=== PATIENT | female | born 1975 | race Caucasian/White ===

== ENCOUNTER 2023-06-15 06:57 | Observation (INO) | payer OTHER ==
--- NOTE | 2023-06-15 07:49 | ED ---
General Adult HPI - General Chief complaint: Chest Pain Stated complaint: Recheck Time Seen by Provider: 06/15/23 07:17 Source: patient Mode of arrival: ambulatory Limitations: no limitations - History of Present Illness Initial comments: Dictation was produced using Somewhere dictation software. please excuse any grammatical, word or spelling errors. Chief Complaint: 47-year-old female presents emergency Department with left head chest and left arm tightness History of Present Illness: 47-year-old female she presents to the emergency Department with feeling unwell. She states that earlier today she had episode of tightness that started in her left head, left chest and left arm. She refuses to his identified this symptom as pain. States that she has extensive history of sudden within the family. Her mother and sister are from unknown cause suspicious however for sudden cardiac . Sister had an autopsy which did not elucidate why she had . Patient has been seeing ventilator specialist recently. Patient has history of high cholesterol. She states that yesterday she saw a ventilator specialist and some positional maneuvers were performed and since then she's been feeling rather unwell. Patient is a sy mptomatically at the bedside currently. She does report that everyone in her family has . She does have 3 children that are well. Patient has any symptoms at the bedside except for feeling unwell. The ROS documented in this emergency department record has been reviewed and confirmed by me. Those systems with pertinent positive or negative responses have been documented in the HPI. All other systems are other negative and/or noncontributory. - Related Data Home Medications Medication Instructions Recorded Confirmed Cholecalciferol [Vitamin D3 (25 50 mcg PO DAILY 10/22/22 06/15/23 Mcg = 1000 Iu)] Aspirin EC [Ecotrin Low Dose] 81 mg PO DAILY 06/15/23 06/15/23 Pravastatin Sodium [Pravachol] 20 mg PO DAILY 06/15/23 06/15/23 Allergies Allergy/AdvReac Type Severity Reaction Status Date / Time Penicillins Allergy Rash/Hives Verified 06/15/23 10:22 all over body prednisone Allergy Rash/Hives Verified 06/15/23 10:22 all over body Review of Systems ROS Statement: Those systems with pertinent positive or pertinent negative responses have been documented in the HPI. ROS Other: All systems not noted in ROS Statement are negative. Past Medical History Past Medical History: Hyperlipidemia, Skin Disorder Additional Past Medical History / Comment(s): Granuloma annulare History of Any Multi-Drug Resistant Organisms: None Reported Past Surgical History: Hysterectomy Past Psychological History: No Psychological Hx Reported Smoking Status: Never smoker Past Alcohol Use History: Occasional Past Drug Use History: None Reported General Exam - General Exam Comments Initial Comments: PHYSICAL EXAM: General Impression: Alert and oriented x3, not in acute distress HEENT: Normocephalic atraumatic, extra-ocular movements intact, pupils equal and reactive to light bilaterally, mucous membranes moist. Cardiovascular: Heart regular rate and rhythm Chest: Able to complete full sentences, no retractions, no tachypnea Abdomen: abdomen soft, non-tender, non-distended, no organomegaly Musculoskeletal: Pulses present and equal in all extremities, no peripheral edema Motor: no focal deficits noted Neurological: CN II-XII grossly intact, no focal motor or sensory deficits noted Skin: Intact with no visualized rashes Psych: Normal affect and mood Limitations: no limitations Course Vital Signs 06/15/23 07:02 Temperature 98.1 F Pulse Rate 91 Respiratory 18 Rate Blood Pressure 151/93 O2 Sat by Pulse 99 Oximetry EKG Findings - EKG Comments: EKG Findings:: My EKG interpretation: Ventricular rate 85, sinus rhythm,. 141, QRS 86, QTC 400. No AL prolongation, no QTC prolongation, no ST or T-wave changes noted. Overall, this EKG is unremarkable Medical Decision Making - Medical Decision Making Was pt. sent in by a medical professional or institution (, PA, LOCAL SUPERINTENDENT, urgent care, hospital, or fci...) When possible be specific @ -No Did you speak to anyone other than the patient for history (EMS, parent, family, police, friend...)? What history was obtained from this source @ -No Did you review nursing and triage notes (agree or disagree)? Why? @ -I reviewed and agree with nursing and triage notes Were old charts reviewed (outside hosp., previous admission, EMS record, old EKG, old radiological studies, urgent care reports/EKG's, fci records)? Report findings @ -No old charts were reviewed Differential Diagnosis (chest pain, altered mental status, abdominal pain women, abdominal pain men, vaginal bleeding, musculoskeletal, weakness, fever, dyspnea, syncope, headache, dizziness, GI bleed, back pain, seizure, CVA, palpatations, mental health)? @ -Differential Chest Pain: Stable Angina, Unstable Angina, STEMI, NSTEMI Aortic Dissection, Pneumothorax, Musculoskeletal, Esophageal Spasm GERD, Cholecystitis, Pancreatitis, Zoster, this is not meant to be an all-inclusive list. EKG interpreted by me (3pts min.). @ -See above X-rays interpreted by me (1pt min.). @ -Chest x-rays no acute CT interpreted by me (1pt min.). @ -None done U/S interpreted by me (1pt. min.). @ -None done What testing was considered but not performed or refused? (CT, X-rays, U/S, labs)? Why? @ -None What meds were considered but not given or refused? Why? @ -None Did you discuss the management of the patient with other professionals (professionals i.e. , PA, LOCAL SUPERINTENDENT, lab, RT, psych nurse, social services specialist, compactor driver, teacher, transit police officer, case management rn)? Give summary @ -Case discussed with hospitalist for admission Was smoking cessation discussed for >3mins.? @ -No Was critical care preformed (if so, how long)? @ -No Were there social determinants of health that impacted care today? How? (Homelessness, low income, unemployed, alcoholism, drug addiction, transportation, low edu. Level, literacy, decrease access to med. care, long-term, rehab)? @ -No Was there de-escalation of care discussed even if they declined (Discuss DNR or withdrawal of care, Hospice)? DNR status @ -No What co-morbidities impacted this encounter? (DM, HTN, Smoking, COPD, CAD, Cancer, CVA, ARF, Chemo, Hep., AIDS, mental health diagnosis, sleep apnea, morbid obesity)? @ -None Was patient admitted / discharged? Hospital course, mention meds given and route, prescriptions, significant lab abnormalities, going to OR and other pertinent info. @ -47-year-old female presents to the emergency department for atypical chest presentation. She does have extensive history of suspected sudden cardiac . Vital signs stable. EKG is unremarkable. Laboratory evaluation is unremarkable. Patient evaluated at bedside 11:00 AM still mildly symptomatic. She'll be admitted with consultation cardiology. Undiagnosed new problem with uncertain prognosis? @ -No Drug Therapy requiring intensive monitoring for toxicity (Heparin, Nitro, Insulin, Cardizem)? @ -No Were any procedures done? @ -No Diagnosis/symptom? Acute, or Chronic, or Acute on Chronic? Uncomplicated (without systemic symptoms) or Complicated (systemic symptoms)? @ -Chest pain Side effects of treatment? @ -No Exacerbation, Progression, or Severe Exacerbation? @ -No Poses a threat to life or bodily function? How? (Chest pain, [place], [place], pneumonia, PE, COPD, DKA, ARF, appy, cholecystitis, CVA, Diverticulitis, Homicidal, Suicidal, threat to staff... and all critical care pts) @ -yes - Lab Data Result diagrams: 06/15/23 08:38 06/15/23 08:38 Lab Results 06/15/23 06/15/23 06/15/23 Range/Units 08:38 08:38 08:38 WBC 9.2 (3.8-10.6) k/uL RBC 5.06 (3.80-5.40) m/uL Hgb 15.7 (11.4-16.0) gm/dL Hct 46.0 (34.0-46.0) % MCV 90.9 (80.0-100.0) fL MCH 31.1 (25.0-35.0) pg MCHC 34.2 (31.0-37.0) g/dL RDW 12.6 (11.5-15.5) % Plt Count 288 (150-450) k/uL MPV 8.4 Neutrophils % 81 % Lymphocytes % 13 % Monocytes % 4 % Eosinophils % 2 % Basophils % 0 % Neutrophils # 7.4 (1.3-7.7) k/uL Lymphocytes # 1.2 (1.0-4.8) k/uL Monocytes # 0.4 (0-1.0) k/uL Eosinophils # 0.2 (0-0.7) k/uL Basophils # 0.0 (0-0.2) k/uL PT (10.0-12.5) sec INR (<1.2) APTT (22.0-30.0) sec Sodium 139 (137-145) mmol/L Potassium 4.3 (3.5-5.1) mmol/L Chloride 102 (98-107) mmol/L Carbon Dioxide 28 (22-30) mmol/L Anion Gap 9 mmol/L BUN 10 (7-17) mg/dL Creatinine 0.53 (0.52-1.04) mg/dL Est GFR (CKD-EPI)AfAm >90 (>60 ml/min/1.73 sqM) Est GFR (CKD-EPI)NonAf >90 (>60 ml/min/1.73 sqM) Glucose 111 H (74-99) mg/dL Calcium 9.6 (8.4-10.2) mg/dL Magnesium 1.9 (1.6-2.3) mg/dL Total Bilirubin 1.2 (0.2-1.3) mg/dL AST 31 (14-36) U/L ALT 25 (4-34) U/L Alkaline Phosphatase 66 (38-126) U/L Troponin I 0.017 (0.000-0.034) ng/mL Total Protein 7.9 (6.3-8.2) g/dL Albumin 4.7 (3.5-5.0) g/dL Influenza Type A (PCR) (Not Detectd) Influenza Type B (PCR) (Not Detectd) RSV (PCR) (Not Detectd) SARS-CoV-2 (PCR) (Not Detectd) 06/15/23 06/15/23 Range/Units 08:38 09:12 WBC (3.8-10.6) k/uL RBC (3.80-5.40) m/uL Hgb (11.4-16.0) gm/dL Hct (34.0-46.0) % MCV (80.0-100.0) fL MCH (25.0-35.0) pg MCHC (31.0-37.0) g/dL RDW (11.5-15.5) % Plt Count (150-450) k/uL MPV Neutrophils % % Lymphocytes % % Monocytes % % Eosinophils % % Basophils % % Neutrophils # (1.3-7.7) k/uL Lymphocytes # (1.0-4.8) k/uL Monocytes # (0-1.0) k/uL Eosinophils # (0-0.7) k/uL Basophils # (0-0.2) k/uL PT 10.3 (10.0-12.5) sec INR 0.9 (<1.2) APTT 24.8 (22.0-30.0) sec Sodium (137-145) mmol/L Potassium (3.5-5.1) mmol/L Chloride (98-107) mmol/L Carbon Dioxide (22-30) mmol/L Anion Gap mmol/L BUN (7-17) mg/dL Creatinine (0.52-1.04) mg/dL Est GFR (CKD-EPI)AfAm (>60 ml/min/1.73 sqM) Est GFR (CKD-EPI)NonAf (>60 ml/min/1.73 sqM) Glucose (74-99) mg/dL Calcium (8.4-10.2) mg/dL Magnesium (1.6-2.3) mg/dL Total Bilirubin (0.2-1.3) mg/dL AST (14-36) U/L ALT (4-34) U/L Alkaline Phosphatase (38-126) U/L Troponin I (0.000-0.034) ng/mL Total Protein (6.3-8.2) g/dL Albumin (3.5-5.0) g/dL Influenza Type A (PCR) Not Detected (Not Detectd) Influenza Type B (PCR) Not Detected (Not Detectd) RSV (PCR) Not Detected (Not Detectd) SARS-CoV-2 (PCR) Not Detected (Not Detectd) Disposition Clinical Impression: Chest pain Disposition: ADMITTED IP TO THIS [facility] Condition: Fair Referrals: Nonstaff,Physician [REFERRING] - 1-2 days Decision Time: 11:07
[2023-06-15 08:53] LABS: Basophils % (A) 0 %; Eosinophils # (A) 0.2 k/uL (0-0.7); Eosinophils % (A) 2 %; HGB 15.7 gm/dL (11.4-16.0); Lymphocytes # (A) 1.2 k/uL (1.0-4.8); Lymphocytes % (A) 13 %; MCH 31.1 pg (25.0-35.0); MCHC 34.2 g/dL (31.0-37.0); MCV 90.9 fL (80.0-100.0); Mean Platelet Volume 8.4; Monocytes # (A) 0.4 k/uL (0-1.0); Monocytes % (A) 4 %; Neutrophils # (A) 7.4 k/uL (1.3-7.7); Neutrophils % (A) 81 %; Platelet Count 288 k/uL (150-450); RBC 5.06 m/uL (3.80-5.40); RDW 12.6 % (11.5-15.5); WBC 9.2 k/uL (3.8-10.6)
[2023-06-15 09:07] LABS: ALT 25 U/L (4-34); AST 31 U/L (14-36); African American GFR (CKD) >90 (>60 ml/min/1.73 sqM); Albumin 4.7 g/dL (3.5-5.0); Alkaline Phosphatase 66 U/L (38-126); Anion Gap 9 mmol/L; Blood Urea Nitrogen 10 mg/dL (7-17); Calcium 9.6 mg/dL (8.4-10.2); Carbon Dioxide 28 mmol/L (22-30); Chloride 102 mmol/L (98-107); Glucose 111 mg/dL (74-99); Magnesium 1.9 mg/dL (1.6-2.3); Non-African American GFR(CKD) >90 (>60 ml/min/1.73 sqM); Potassium 4.3 mmol/L (3.5-5.1); Sodium 139 mmol/L (137-145); Total Bilirubin 1.2 mg/dL (0.2-1.3); Total Protein 7.9 g/dL (6.3-8.2)
--- NOTE | 2023-06-15 09:24 | XR ---
EXAMINATION TYPE: XR chest 2V DATE OF EXAM: 06/15/2023 COMPARISON: NONE TECHNIQUE: PA and lateral views submitted. HISTORY: Chest pain FINDINGS: The lungs are clear and there is no pneumothorax, pleural effusion, or focal pneumonia. Heart size normal and no overt failure. Osseous structures demonstrate hypertrophic and degenerative changes of the spine. Hyperinflation of the lungs correlate for COPD. IMPRESSION: 1. No acute process. COPD.
[2023-06-15 09:58] LABS: INR 0.9 (<1.2); Partial Thromboplastin Time 24.8 sec (22.0-30.0); Prothrombin Time 10.3 sec (10.0-12.5)
[2023-06-15] MEDS ORDERED: ASPIRIN 81 MG PO STA (11:01)
[2023-06-15] MEDS ORDERED: NITROGLYCERIN SL TABS 0.4 MG TAB SUBLINGUAL PRN (11:01)
[2023-06-15] MEDS ORDERED: NITROGLYCERIN SL TABS 0.4 MG TAB SUBLINGUAL STA (11:01)
--- NOTE | 2023-06-15 13:29 | P.HPIM ---
History of Present Illness H&P Date: 06/15/23 Patient is a 47-year-old female with history of dyslipidemia, significant family history of sudden cardiac disease presented with chest tightness. She claims that she was on her way to work this morning and had a sudden sensation going from her head all the way to her chest and down to her left arm. She described her as feeling tired like she just ran a marathon. She also had some tightness in her chest. Most of the sensation is now resolved. She has some palpitations last night, denies any lightheadedness or shortness of breath. Denies any fevers, chills, urinary or bowel complaints. Denies any abdominal pain. She denies any smoking, occasional alcohol use. Denies any illicit drug use. Her sister in her 20s due to sudden cardiac arrest, her mother also with similar issues. She herself had tachycardia, unknown type. She also had a cardiac cath 2 years ago which was normal. In the ED, temperature was 98.1, pulse 91, respiratory rate 18, blood pressure 151/93, saturating at 99% on room air. EKG independently interpreted shows normal sinus rhythm. Chest x-ray independently interpreted shows no acute process.. CBC and CMP within normal limits, glucose 111, troponin 0.017, respiratory viral panel negative. Patient given aspirin and nitroglycerin in the ED. Cardiology consulted. Patient being admitted as observation for atyp ical chest pain. Pertinent positives and negatives as discussed in HPI, a complete review of systems was performed and all other systems are negative. Patient seen and examined at bedside. Vital signs reviewed General: nontoxic, no distress, appears at stated age Derm: warm, dry Head: atraumatic, normocephalic, symmetric Eyes: EOMI, no lid lag, anicteric sclera, pupils equal round reactive to light ENT: Nose and ears atraumatic Neck: No thyromegaly, supple Mouth: no lip lesion, mucus membranes moist Cardiovascular: S1S2 reg, no murmur, no edema Lungs: clear to auscultation bilateral, no rhonchi, no rales, no wheeze, no accessory muscle use Abdominal: soft, nontender to palpation, no guarding, no appreciable organomegaly Ext: no gross muscle atrophy, muscle strength muscle strength 5 out of 5 in all 4 extremities, no contractures Neuro: CN II-XII grossly intact Psych: Alert, oriented, appropriate affect Assessment/Plan: Active: Chest pain, rule out ACS Dyslipidemia -Continue telemetry -Continue to trend troponin -Continue aspirin 81 mg -Continue home statin -Lipid panel, TSH, A1c pending -Cardiology consulted -May benefit from ambulatory event monitoring or an EP study Hypertension -Uncontrolled -Continue to monitor, may need to start antihypertensives The patient is admitted with an anticipated less than 2 midnight stay as obser vation status for evaluation of chest pain. Surrogate decision-maker: Significant other CODE STATUS: Full code DVT prophylaxis: Subcu heparin Anticipated discharge date: Pending clinical course Anticipated discharge place: Pending clinical course A total of 55 minutes was spent on the care of this complex patient more than 50% of the time was spent in counseling and care coordination. Past Medical History Past Medical History: Hyperlipidemia, Skin Disorder Additional Past Medical History / Comment(s): Granuloma annulare History of Any Multi-Drug Resistant Organisms: None Reported Past Surgical History: Hysterectomy Past Psychological History: No Psychological Hx Reported Smoking Status: Never smoker Past Alcohol Use History: Occasional Past Drug Use History: None Reported Medications and Allergies Home Medications Medication Instructions Recorded Confirmed Type Cholecalciferol [Vitamin D3 (25 50 mcg PO DAILY 10/22/22 06/15/23 History Mcg = 1000 Iu)] Aspirin EC [Ecotrin Low Dose] 81 mg PO DAILY 06/15/23 06/15/23 History Pravastatin Sodium [Pravachol] 20 mg PO DAILY 06/15/23 06/15/23 History Allergies Allergy/AdvReac Type Severity Reaction Status Date / Time Penicillins Allergy Rash/Hives Verified 06/15/23 10:22 all over body prednisone Allergy Rash/Hives Verified 06/15/23 10:22 all over body Physical Exam Vitals: Vital Signs Temp Pulse Resp BP Pulse Ox 06/15/23 11:28 81 18 177/109 99 06/15/23 07:02 98.1 F 91 18 151/93 99 Intake and Output 06/14/23 06/15/23 06/15/23 22:59 06:59 14:59 Other: Weight 86.183 kg Results CBC & Chem 7: 06/15/23 08:38 06/15/23 08:38 Labs: Abnormal Lab Results - Last 24 Hours (Table) 06/15/23 Range/Units 08:38 Glucose 111 H (74-99) mg/dL
[2023-06-15] MEDS: HEPARIN SODIUM,PORCINE 5,000 UNIT/ML 1 ML VIAL SQ SCH (15:20)
[2023-06-15] MEDS ORDERED: ACETAMINOPHEN TAB 325 MG TAB PO PRN (16:50)
[2023-06-15] MEDS: LISINOPRIL-HCTZ 10-12.5 MG 1 EACH TAB PO SCH (17:34)
[2023-06-16] MEDS: HEPARIN SODIUM,PORCINE 5,000 UNIT/ML 1 ML VIAL SQ SCH ×2 (00:44→11:45)
[2023-06-16] MEDS ORDERED: ASPIRIN 325 MG TAB PO SCH (09:00)
[2023-06-16] MEDS ORDERED: ASPIRIN 81 MG PO SCH (09:00)
[2023-06-16] MEDS ORDERED: PRAVASTATIN SODIUM 20 MG TAB PO SCH (09:00)
[2023-06-16] MEDS ORDERED: CHOLECALCIFEROL 25 MCG (1000 IU) TABLET PO SCH (09:00)
[2023-06-16 09:13] VITALS: BP 128/83; PULSE 89; RESP 20; TEMP 97.6
[2023-06-16 09:13] LABS: Chol/HDL Ratio 3.51 Ratio; LDL Cholesterol,Calculated 120.5 mg/dL (0.0-131.0)
--- NOTE | 2023-06-16 10:58 | P.DS ---
Providers Date of admission: 06/15/23 11:01 Expected date of discharge: 06/16/23 Attending physician: Yovanny Ram MD Consults: 06/15/23 11:01 Consult Physician Urgent Consulting Provider: Say Nj Consult Reason/Comments: chest pain Do you want consulting provider notified?: Yes Primary care physician: Salvador Mooney Hospital Course: Discharge Diagnosis: Atypical chest pain Dyslipidemia Hypertension Hospital Course: 47-year-old female with history of dyslipidemia, significant family history of sudden cardiac disease presented with chest tightness. In the ED, temperature was 98.1, pulse 91, respiratory rate 18, blood pressure 151/93, saturating at 99% on room air. EKG independently interpreted shows normal sinus rhythm. Chest x-ray independently interpreted shows no acute process.. CBC and CMP within normal limits, glucose 111, troponin 0.017, respiratory viral panel negative. Patient given aspirin and nitroglycerin in the ED. Cardiology consulted. Patient being admitted as observation for atypical chest pain. Chest tightness is resolved. Troponin negative 3. Cardiology recommending outpatient follow-up with outpatient echocardiogram. Patient seen and examined at bedside. Vital signs reviewed and stable. General: nontoxic, no distress, appears at stated age Derm: warm, dry Head: atraumatic, normocephalic, symmetric Eyes: EOMI, no lid lag, anicteric sclera Mouth: no lip lesion, mucus membranes moist Cardiovascular: S1S2 reg, no murmur Lungs: CTA bilateral, no rhonchi, no rales , no accessory muscle use Abdominal: soft, nontender to palpation, no guarding, no appreciable organomegaly Ext: no gross muscle atrophy, no edema, no contractures Neuro: CN II-XI grossly intact, no focal neuro deficits Psych: Alert, oriented, appropriate affect A total of 33 minutes of time were spent preparing this complex discharge summary. Patient was discharged on 06/16/23 at 1033. Patient Condition at Discharge: Stable Plan - Discharge Summary Discharge Rx Participant: Yes New Discharge Prescriptions: New Lisinopril-Hctz 10-12.5 mg [Zestoretic 10-12.5] 1 each PO DAILY #30 tab Continue Pravastatin Sodium [Pravachol] 20 mg PO DAILY Cholecalciferol [Vitamin D3 (25 Mcg = 1000 Iu)] 50 mcg PO DAILY Aspirin EC [Ecotrin Low Dose] 81 mg PO DAILY Discharge Medication List Cholecalciferol [Vitamin D3 (25 Mcg = 1000 Iu)] 50 mcg PO DAILY 10/22/22 [History] Aspirin EC [Ecotrin Low Dose] 81 mg PO DAILY 06/15/23 [History] Pravastatin Sodium [Pravachol] 20 mg PO DAILY 06/15/23 [History] Lisinopril-Hctz 10-12.5 mg [Zestoretic 10-12.5] 1 each PO DAILY #30 tab 06/16/23 [Rx] Follow up Appointment(s)/Referral(s): Manish Marsh MD [STAFF PHYSICIAN] - 1 Week Randy Khan DO [REFERRING] - 1 Week Nonstaff,Physician [REFERRING] - 1-2 days Patient Instructions/Handouts: Chronic Hypertension (DC) Activity/Diet/Wound Care/Special Instructions: Please see your business division chair and PCP. You will need an echo outpatient. Discharge Disposition: HOME SELF-CARE
--- NOTE | 2023-06-16 11:07 | P.CRDCN ---
History of Present Illness Consult date: 06/16/23 Consult reason: chest pain History of present illness: History of present illness: This is a 47-year-old female with past medical history of hyperlipidemia. We have been asked to evaluate the patient for chest pain. Patient gives history that she has episodes when she is under a lot of stress and lack of sleep she develops lightheadedness and double vision and passes out. Her last episode was in October and she did not seek any treatment at that time and she states she has it so often. She gives history that she was seen by her program advocate on Tuesday and plan was to schedule her for echocardiogram and a sleep study. Patient states on Tuesday she was getting ready for work and driving. She developed a headache and pressure and then everything became distorted. She had a flushing feeling and the left side of her face that went to her heart. She also had palpitations. She pulled over and waited for the symptoms to subside. She also had some sensation of left arm squeezing on her drive to the hospital. She denies any history of smoking, no marijuana use. She drinks alcohol rarely. She does drink coffee daily but without excess. EKG normal sinus rhythm, no acute changes Chest x-ray: no acute process CBC, INR, BMP all within normal limits except for blood sugar of 111. Hemoglobin A1c 5.3. Troponin negative 3. Magnesium 1.9. Triglycerides 177, cholesterol 218, LDL 120, HDL 62. Influenza A, influenza B, RSV, Covid 19 not detected. Home cardiac medications: pravastatin 20 mg daily Review Of Systems: At the time of my exam: CONSTITUTIONAL: Denies fever or chills. CARDIOVASCULAR: Denies chest pain, Denies shortness of breath, no orthopnea, PND or palpitations. RESPIRATORY: Denies cough. GASTROINTESTINAL: Denies abdominal pain, diarrhea, constipation, nausea or vomiting. MUSCULOSKELETAL: Denies myalgias. NEUROLOGIC: Denies numbness, tingling or weakness. ENDOCRINE: Denies fatigue, weight change, polydipsia or polyurina. HEMATOLOGIC: Denies history of anemia or bleeding. Physical examination: Gen: This is a 47-year-old female. She is resting and appears to be in no acute distress. VS: reviewed HEENT: Head is atraumatic, normocephalic. Pupils equal, round. Sclerae is anicteric. NECK: Supple. No JVD. LUNGS: Clear to auscultation. No wheezes or rhonchi. No intercostal retractions. HEART: Regular rate and rhythm. No murmur. ABDOMEN: Soft No tenderness. EXTREMITIES: No pedal edema. No calf tenderness. NEUROLOGICAL: Patient is awake, alert and oriented x3. Assessment: Atypical chest pain, acute coronary syndrome ruled out Vague symptoms of flushing, palpitations History of hyperlipidemia Plan: Discussed options with patient of either undergoing echocardiogram here or fo llowing up with her program advocate and have echocardiogram scheduled as was planned. She has agreed to follow up with her program advocate in complete her workup there. Also recommended possible psychiatric/counseling follow-up regarding increased stress. Patient is cleared for discharge will follow-up with her primary program advocate. Thank you kindly for this consultation. Nurse practitioner note has been reviewed, I agree with documented findings and plan of care. Patient was seen and examined. Past Medical History Past Medical History: Hyperlipidemia, Skin Disorder Additional Past Medical History / Comment(s): Granuloma annulare History of Any Multi-Drug Resistant Organisms: None Reported Past Surgical History: Hysterectomy Additional Past Surgical History / Comment(s): partial hysterectomy r/t endometriosis Past Anesthesia/Blood Transfusion Reactions: No Reported Reaction Past Psychological History: No Psychological Hx Reported Smoking Status: Never smoker Past Alcohol Use History: Occasional Past Drug Use History: None Reported - Past Family History Mother Additional Family Medical History / Comment(s): mother of cardiac arrest at 62yo, sister was 28 when she passed from possible cardiac arrest Medications and Allergies Home Medications Medication Instructions Recorded Confirmed Type Cholecalciferol [Vitamin D3 (25 50 mcg PO DAILY 10/22/22 06/15/23 History Mcg = 1000 Iu)] Aspirin EC [Ecotrin Low Dose] 81 mg PO DAILY 06/15/23 06/15/23 History Pravastatin Sodium [Pravachol] 20 mg PO DAILY 06/15/23 06/15/23 History Lisinopril-Hctz 10-12.5 mg 1 each PO DAILY #30 tab 06/16/23 Rx [Zestoretic 10-12.5] Allergies Allergy/AdvReac Type Severity Reaction Status Date / Time Penicillins Allergy Rash/Hives Verified 06/15/23 10:22 all over body prednisone Allergy Rash/Hives Verified 06/15/23 10:22 all over body Physical Exam Vitals: Vital Signs Temp Pulse Pulse Resp BP BP Pulse Ox 06/16/23 00:44 97.8 F 84 16 100/68 97 06/15/23 20:00 97.8 F 73 16 138/85 99 06/15/23 18:41 151/90 06/15/23 18:04 85 16 167/90 100 06/15/23 16:00 80 19 179/96 99 06/15/23 11:28 81 18 177/109 99 Intake and Output 06/15/23 06/16/23 06/16/23 22:59 06:59 14:59 Other: # Voids 1 3 Weight 86.183 kg Results 06/15/23 08:38 06/15/23 08:38 Cardiac Enzymes 06/15/23 06/15/23 06/15/23 Range/Units 08:38 08:38 11:46 AST 31 (14-36) U/L Troponin I 0.017 <0.012 (0.000-0.034) ng/mL 06/15/23 Range/Units 14:13 AST (14-36) U/L Troponin I <0.012 (0.000-0.034) ng/mL Coagulation 06/15/23 Range/Units 09:12 PT 10.3 (10.0-12.5) sec APTT 24.8 (22.0-30.0) sec CBC 06/15/23 Range/Units 08:38 WBC 9.2 (3.8-10.6) k/uL RBC 5.06 (3.80-5.40) m/uL Hgb 15.7 (11.4-16.0) gm/dL Hct 46.0 (34.0-46.0) % Plt Count 288 (150-450) k/uL Comprehensive Metabolic Panel 06/15/23 Range/Units 08:38 Sodium 139 (137-145) mmol/L Potassium 4.3 (3.5-5.1) mmol/L Chloride 102 (98-107) mmol/L Carbon Dioxide 28 (22-30) mmol/L BUN 10 (7-17) mg/dL Creatinine 0.53 (0.52-1.04) mg/dL Glucose 111 H (74-99) mg/dL Calcium 9.6 (8.4-10.2) mg/dL AST 31 (14-36) U/L ALT 25 (4-34) U/L Alkaline Phosphatase 66 (38-126) U/L Total Protein 7.9 (6.3-8.2) g/dL Albumin 4.7 (3.5-5.0) g/dL Current Medications Generic Name Dose Route Start Last Admin Trade Name Freq PRN Reason Stop Dose Admin Acetaminophen 650 mg 06/15/23 16:50 06/15/23 17:36 Acetaminophen Tab 325 Mg Tab PO 650 mg Q6HR PRN Administration Fever and/ or Pain Aspirin 81 mg 06/16/23 09:00 Aspirin 81 Mg PO DAILY BRENDAN Cholecalciferol 50 mcg 06/16/23 09:00 Cholecalciferol 25 Mcg (1000 Iu) Tablet PO DAILY BRENDAN Lisinopril/HCTZ 1 each 06/15/23 17:00 06/15/23 17:34 Lisinopril-Hctz 10-12.5 Mg 1 Each Tab PO 1 each DAILY BRENDAN Administration Heparin Sodium (Porcine) 5,000 unit 06/15/23 16:00 06/16/23 00:44 Heparin Sodium,Porcine 5,000 Unit/Ml 1 Ml Vial SQ 5,000 unit Q8HR BRENDAN Administration Nitroglycerin 0.4 mg 06/15/23 11:01 Nitroglycerin Sl Tabs 0.4 Mg Tab SUBLINGUAL Q5M PRN Chest Pain Pravastatin Sodium 20 mg 06/16/23 09:00 Pravastatin Sodium 20 Mg Tab PO DAILY BRENDAN Intake and Output 06/15/23 06/16/23 06/16/23 22:59 06:59 14:59 Other: # Voids 1 3 Weight 86.183 kg 06/15/23 08:38 06/15/23 08:38
[2023-06-16] MEDS: LISINOPRIL-HCTZ 10-12.5 MG 1 EACH TAB PO SCH (11:44)
== END 2023-06-16 12:06 | disposition home or self-care (01) ==
LOC: EC 06:57 → 6NMEDSUR 11:01
PROVIDERS: ADMIT Student in an Organized Health Care Education/Training Program; ATTEND Student in an Organized Health Care Education/Training Program
DX: R07.89 Other chest pain (principal); E78.00 Pure hypercholesterolemia, unspecified; I10 Essential (primary) hypertension; Z20.822 Contact with and (suspected) exposure to COVID-19; Z79.82 Long term (current) use of aspirin; Z79.899 Other long term (current) drug therapy; Z88.0 Allergy status to penicillin; Z82.49 Family history of ischemic heart disease and other diseases of the circulatory system; Z82.41 Family history of sudden cardiac death
CPT/HCPCS: 96372 ×2; 99285; 36415; 93005; 80061; 80053; 84443; 83735; 84484; 85025; 85610; 85730; 83036; 87636; 71046; G0378 ×2; J1644 ×2

== ENCOUNTER → 2023-08-25 | Outpatient (CLI) | payer OTHER ==
--- NOTE | 2023-08-25 13:12 | CT ---
Exam: CT Angiography of the Chest. Date: 08/25/2023. Comparison: None History: Heavy chest and dizziness. Technique: CT examination of the chest was performed following the intravenous administration of 58 m L of Isovue-370. CT dose lowering techniques were used, to include: automated exposure control, adjus tment for patient size, and/or use of iterative reconstruction. FINDINGS: Mediastinum and Meghann: There is no axillary, mediastinal or hilar lymphadenopathy. Pleural and Pericardial spaces: There are no pleural or pericardial effusions. Upper Abdomen: The visualized upper abdomen is unremarkable. Cardiovascular: The thoracic aorta is normal in size without evidence of aneurysm or dissection. Pulmonary Artery: There are no filling defects in the pulmonary arteries. Lung Parenchyma and Airways: The lungs are clear. Bones: No fracture or aggressive osseous lesion. IMPRESSION: 1. No evidence of pulmonary embolism. 2. No evidence of thoracic aortic aneurysm or dissection. 3. No evidence of pneumonia, pleural or pericardial effusions.
== END | disposition home or self-care (01) ==
LOC: RADCTMAIN 11:52
PROVIDERS: ATTEND Internal Medicine
DX: R06.02 Shortness of breath (principal); R42 Dizziness and giddiness
CPT/HCPCS: 71275; Q9967

== ENCOUNTER → 2023-11-25 | Outpatient (CLI) | payer OTHER ==
--- NOTE | 2023-11-29 05:58 | CT ---
EXAMINATION TYPE: CT sinus wo con DATE OF EXAM: 11/25/2023 COMPARISON: None. HISTORY: CHRONIC SINUSITIS. HX OF SINUS MASS. CT DLP: 581 mGycm. Automated Exposure Control for Dose Reduction was Utilized. TECHNIQUE: CT scan of the sinuses is performed without contrast, axial images are obtained, coronal r eformatted images are also reviewed. FINDINGS: Moderate mucosal thickening in the right maxillary sinus. Mild mucosal thickening in the le ft maxillary sinus with large mucous retention cyst or polyp inferiorly. Mild to moderate mucosal thi ckening in the ethmoid sinuses bilaterally with some patchy secretions and suspected small polyp on t he right bilateral frontal and sphenoid sinuses are clear. The ostiomeatal complex is narrowed and l ikely occluded bilaterally due to antral mucosal thickening. Visualized portion of mastoid air cells show no abnormal opacification. The globes are intact bilate rally. IMPRESSION: Acute on chronic paranasal sinus disease is noted as detailed above.
== END | disposition home or self-care (01) ==
LOC: RADCTMAIN 09:53
PROVIDERS: ATTEND Otolaryngology
DX: J34.89 Other specified disorders of nose and nasal sinuses (principal); J32.0 Chronic maxillary sinusitis
CPT/HCPCS: 70486

== ENCOUNTER 2024-05-30 07:34 | Day surgery (SDC) | payer OTHER ==
[2024-05-28 14:17] VITALS: BMI 34.9
[~2024-05-30 07:34] MED LIST: LIDOCAINE 1% (10MG/ML) FOR IV START INTRADERMA PRN
[2024-05-30] MEDS: IV FLUID CONTINUATION 1,000 ML IV ONE (07:50)
[2024-05-30 07:57] VITALS: TEMP 97.3
[2024-05-30] MEDS: LACTATED RINGERS 1,000 ML IV SCH (08:14)
[2024-05-30] MEDS: ONDANSETRON 4 MG/2 ML VIAL IVP ONE (08:14)
[2024-05-30] MEDS: FAMOTIDINE 20 MG/2 ML VIAL IV PRN (08:15)
[2024-05-30] MEDS: OXYMETAZOLINE 0.05% NASL SPRAY 1 SPRAY BOTTLE EA NOSTRIL PRN (08:30)
[2024-05-30] MEDS ORDERED: MIDAZOLAM 2 MG/2 ML VIAL ONE (08:42)
[2024-05-30] MEDS ORDERED: NEOSTIGMINE 1 MG/ML 10 ML VIAL ONE (08:42)
[2024-05-30] MEDS ORDERED: GLYCOPYRROLATE 0.2 MG/ML 2 ML VIAL ONE (08:42)
[2024-05-30] MEDS ORDERED: PHENYLEPHRINE 10 MG/ML VIAL ONE (08:42)
[2024-05-30] MEDS ORDERED: fentaNYL (PF) 50 MCG/ML 2 ML AMP ONE (08:42)
[2024-05-30] MEDS ORDERED: LIDOCAINE 1% INJ 10MG/ML (20 ML MDV) ONE (08:42)
[2024-05-30] MEDS ORDERED: PROPOFOL 10 MG/ML 20 ML VIAL IV ONE (08:42)
[2024-05-30] MEDS ORDERED: ROCURONIUM 10 MG/ML (5 ML VIAL) IV ONE (08:42)
[2024-05-30] MEDS: LIDOCAINE 1%-EPI 1:100,000 20 ML VIAL SUBMUCOSAL ONE ×2 (08:59)
[2024-05-30] MEDS: BACITRACIN ZINC 500 UNIT/GM OINT 28.4 GM TUBE TOPICAL ONE ×2 (09:03→09:40)
--- NOTE | 2024-05-30 09:56 | P.OP ---
Date of Procedure: 05/30/24 Preoperative Diagnosis: deviated nasal septum Inferior turbinate hypertrophy Chronic sinusitis Postoperative Diagnosis: same Procedure(s) Performed: septoplasty Outfracture and submucous resection of the inferior turbinates Bilateral endoscopic sinus surgery including bilateral maxillary antrostomy with removal of tissue from maxillary sinuses bilateral anterior and posterior ethmoidectomy Anesthesia: TERI Surgeon: Robi Ball Estimated Blood Loss (ml): 10 Pathology: other (septal bone and cartilage and sinus contents) Condition: stable Disposition: PACU Indications for Procedure: the 48-year-old white female whose had difficulties with chronic nasal airway obstruction congestion recurrent and chronic sinusitis with CT showing evidence of chronic sinusitis Operative Findings: nasal septum deviated to the right, inferior turbinate hypertrophy, mucosal thickening and small polyps in the maxillary sinuses, mucosal thickening throughout the ethmoid air cells bilaterally Description of Procedure: The patient was brought into the operative suite and placed in a supine position. The patient underwent induction of general anesthesia with oral endotracheal intubation without difficulty. The patient was prepped and draped in the usual aseptic fashion with the orbits in the operating field for monitoring to the case and the computed tomography scan was on the computer screen for review throughout the case. 1% lidocaine with 1 :100,000 epinephrine was infused submucosally into both sides of the nasal septum as well as the lateral nasal wall and anterior tips of the middle turbinates. While this was taking vasoconstrictive effect the inferior turbinates were infractured with Badger elevator and partial submucous resection of the inferior turbinates was performed with a portion of the submucosal soft tissue and the inferior turbinate bone removed with Coblation device. The inferior turbinates were then outfractured with the Badger elevator. A left hemitransfixion incision was then made with the mucoperichondrial and mucoperiosteal flap on the left elevated. The bony cartilaginous junction was disarticulated and the mucoperiosteal flap on the right was elevated. Bony nasal septal deformities were removed with Royal forceps and an inferior cartilaginous strip was removed leaving a full 1.5 cm caudal strut. Checking intranasally this corrected the nasoseptal deformities and the hemitransfixion incision was closed with a running 4-0 chromic suture. Full 0 endoscopic examination is performed bilaterally. Beginning on the left, the middle turbinate was medialized. The maxillary ostium was located with a ballpoint probe and an infundibulotomy was performed followed by uncinectomy. The maxillary antrostomy was enlarged at the expense of the anterior and posterior fontanelle taking care anteriorly not to injure the lacrimal bone. The maxillary sinus was evaluated with 30 and 70 endoscope .[Abnormal appearing tissue was removed from the maxillary sinus]. Anterior and posterior ethmoidectomy were then performed from anterior to posterior to the level of the skull base. The roof of the anterior ethmoid air cells were then cleaned from posterior to anterior using up-biting Blakesley forceps.]. Attention was then turned to the right where the procedures were followed as they had been on the left including medialization middle turbinate infundibulotomy uncinectomy maxillary antrostomy with removal of tissue from the maxillary sinus, anterior and posterior ethmoidectomy. [Nasopore nasal dressing was placed in the middle meatus bilaterally under direct visualization]. Bilateral Molina airway splints coated with bacitracin ointment were placed and sutured transseptally with a 4-0 nylon suture. The patient was suctioned in oral gastric fashion and was allowed to emerge from general anesthesia having tolerated procedure well and was extubated in the operating suite and transferred to the postoperative recovery area in satisfactory condition.
[2024-05-30] MEDS: hydrALAZINE HCL 20 MG/ML 1 ML VIAL IVP PRN (10:25)
[2024-05-30] MEDS: HYDROmorphone 0.5 MG/0.5 ML SYRINGE IVP PRN (10:27)
[2024-05-30] MEDS ORDERED: HYDROcodone/APAP 5-325MG 1 EACH TAB PO STA (11:06)
[2024-05-30] MEDS: droPERidol 5 MG/2 ML VIAL IVP ONE (11:10)
[2024-05-30 12:23] VITALS: RESP 16
[2024-05-30 13:00] VITALS: BP 121/83; PULSE 86
== END 2024-05-30 13:12 | disposition home or self-care (01) ==
LOC: OR 07:34
PROVIDERS: ATTEND Otolaryngology
DX: J34.2 Deviated nasal septum (principal); J34.3 Hypertrophy of nasal turbinates; J32.8 Other chronic sinusitis; J34.89 Other specified disorders of nose and nasal sinuses; J33.8 Other polyp of sinus; J30.89 Other allergic rhinitis; E66.9 Obesity, unspecified; Z68.30 Body mass index [BMI] 30.0-30.9, adult; Z79.899 Other long term (current) drug therapy; Z88.1 Allergy status to other antibiotic agents; Z88.8 Allergy status to other drugs, medicaments and biological substances
CPT/HCPCS: 31267; 31255; 30520; 30140; J2250; J0360; J2710; J0690; J2405; J2003; J3010; J3490; J2704; J1171; J1790; J2371; J1596; 88300; 88305